=== PATIENT | female | born 1965 | race Caucasian/White ===

== ENCOUNTER 2019-11-01 08:29 | Emergency (ER) | payer SELFPAY ==
[2019-11-01 08:31] VITALS: BP 173/106; PULSE 74; RESP 16; TEMP 36.4; O2SAT 96; BMI 38.5
--- NOTE | 2019-11-01 08:32 | W.ED.EYEPROB ---
HPI - Eye Problem General: Chief complaint: Eye Problems Stated complaint: LEFT EYE PAIN Time Seen by Provider: 11/01/19 08:32 Source: patient Mode of arrival: ambulatory Limitations: no limitations History of Present Illness: HPI Narrative: Patient is a 54-year-old female who presents to ED today with a complaint of probable left eye conjunctivitis. Patient states beginning yesterday she began noticing increased drainage from the eye and states eye was matted this morning. Patient states she has a history of bacterial conjunctivitis and states her symptoms today feel similar. She does not describe any visual changes. She has no pain or periorbital pain or headache. She does state the eye is burning a small amount. No injury or trauma. No foreign body sensations. MD chief complaint: eye pain (burning), eye redness and other (discharge) Onset (ago): day(s) (yesterday) Location: left eye Eye Symptoms: burning, redness and discharge Place: home Mechanism: none Severity: mild Associated symptoms: Reports no associated symptoms Treatments Prior to Arrival: none Related Data: Patient tetanus UTD: Yes Review of Systems Eyes: Reports: eye discomfort, eye discharge and eye redness; Denies: change in vision, blurry vision, blind spots, photophobia, yellow eyes, dry eyes, increased production of tears, floaters, seeing flashes or decreased night vision PFSH ED PFSH: Social History Smoking and tobacco status: never smoked Physical Exam Const: COMMON NORMALS: no acute distress, patient oriented x3 and alert Eye: COMMON NORMALS: Equal, round and reactive pupils present, EOMs intact bilaterally, conjunctivae normal (very mild injection present), no scleral icterus and normal visual poole by confrontation GENERAL EYE: appearance normal, both eyes and all related structures and normal light reflex VISUAL ACUITY: Yes acuity normal VISUAL POOLE: Yes other (visual poole are normal) ALIGNMENT: Yes alignment normal PERIORBITAL: periorbital findings normal EYELID: eyelids normal CONJUNCTIVA: Yes conjunctivae normal (very mild injection present) SCLERA: sclerae normal CORNEA: Yes corneas normal PUPIL: Yes Equal, round and reactive pupils present and Yes Pupil accommodation reflex normal DIRECT OPHTHALMOSCOPY: Yes normal light reflex Neuro: COMMON NORMALS: patient oriented x3 SENSORIUM/ORIENTATION: Yes alert Course Vital Signs: Vital signs: Vital Signs Temperature 97.6 F 11/01/19 08:31 Pulse Rate 74 11/01/19 08:31 Respiratory Rate 16 11/01/19 08:31 Blood Pressure 173/106 11/01/19 08:31 Pulse Oximetry 96 11/01/19 08:31 Discharge Plan Discharge Patient Disposition: Home, Self-Care Clinical Impression: Bacterial conjunctivitis Condition: Stable Prescriptions: New polymyxin B sulf-trimethoprim 10,000 unit- 1 mg/mL drops 1 drop ophthalmic (eye) Q3H 7 Days Qty: 10 RF: 0 Discharge Orders: Discharge Order (Routine); Ordered 11/01/19 Ordered By: Patricia Balbuena Discharge Diet: Usual diet Discharge Activity: Resume usual activity Patient Instructions: Conjunctivitis (ED) Activity Restrictions/Additional Instructions: You may follow up with primary care next week if eye does not seem to be improving. Return to ED for worsening pain, visual changes, painful eye movements, foreign body sensations, headache, or any other concerns you may have. Coding Level of Care Code [facility] [place] [facility] Manager for Sel[facility] Monterroso
--- NOTE | 2019-11-01 08:49 | PC.NURSE ---
acuity test done, R 20/25 L20/40 BOTH 20/25
== END 2019-11-01 08:58 | disposition home or self-care (01) ==
LOC: ER 09:16
PROVIDERS: Emergency Provider Physician Assistant
DX: H10.89 Other conjunctivitis (principal)
CPT/HCPCS: 12345; 99281; 99282

== ENCOUNTER 2022-08-30 16:15 | Outpatient (CLI) | payer BC, SELFPAY ==
--- NOTE | 2022-08-30 16:31 | XR_ITS ---
WS: [id number] EXAMINATION: XR foot left min 3V* [id number] REASON FOR EXAM: E11.621 - Type 2 diabetes mellitus with foot ulcer COMPARISON: None available. ORDER DATE: 08/30/2022 4:32 PM TECHNIQUE: 3 views of the left foot were obtained. X-RAY FINDINGS: There are no fractures. There is severe hallux valgus/bunion change of the first MTP joint is nearly 45 degree angulation. Similar angular deformities are present at the second through fourth MTP joints with subluxations occurring at the second and third MTP joints. There appears to be a somewhat commi nuted intra-articular fracture at the base of the fourth proximal phalanx. There is a 5 mm calcaneal spur. There may be circumferential mid foot subcutaneous edema . XR/XR foot LT min 3V* [id number] IMPRESSION: Chronic subluxations. Acute intra-articular fracture at the base of the fourth proximal phalanx Possible cellulitis or diffuse subcutaneous edema
== END 2022-08-30 16:16 | disposition home or self-care (01) ==
LOC: RAD 16:21
PROVIDERS: PCP Nurse Practitioner Family; Visit Provider Nurse Practitioner Family
DX: E11.621 Type 2 diabetes mellitus with foot ulcer (principal); I96 Gangrene, not elsewhere classified; L97.522 Non-pressure chronic ulcer of other part of left foot with fat layer exposed; S93.302A Unspecified subluxation of left foot, initial encounter; X58.XXXA Exposure to other specified factors, initial encounter
CPT/HCPCS: 73630; 87070; 87077; 87176; 87186; 87205